=== PATIENT | male | born 1955 | race Caucasian/White ===

== ENCOUNTER 2017-12-09 16:36 | Emergency (ER) | payer OTHER ==
--- NOTE | 2017-12-09 16:42 | PDOC ---
Rapid Medical Evaluation Time Seen by Provider: 12/09/17 16:39 Medical Evaluation: Allergies Allergy/AdvReac Type Severity Reaction Status Date / Time No Known Allergies Allergy Verified 01/21/15 18:47 12/09/17 16:39 I have performed a brief in-person evaluation of this patient. The patient presents with a chief complaint of: acute alcohol intoxication, requesting detox. H/o alcohol abuse, seizures, anxiety, depression s/p last detox at [facility] in 2014, HTN, DM, s/p L 5th toe amp Pertinent physical exam findings:acutely intoxicated I have ordered the following:labs The patient will proceed to the ED for further evaluation.
[2017-12-09 16:44] VITALS: BMI 34.4
[2017-12-09 18:33] LABS: BASO % 0.7 % (0-2.0); EOS % 7.8 % (0-4.5); HEMATOCRIT 26.6 % (35.4-49); LYMPH % 20.5 % (8-40); MCH 29.4 pg (25.7-33.7); MCHC 33.9 g/dl (32.0-35.9); MEAN CELL VOLUME 86.7 fl (80-96); MEAN PLT VOLUME 6.2 fl (7.5-11.1); MONO % 9.9 % (3.8-10.2); NEUT % 61.1 % (42.8-82.8); PLATELET COUNT 278 K/MM3 (134-434); RBC 3.07 M/mm3 (4.00-5.60); RDW 15.3 % (11.9-15.9); WHITE BLOOD COUNT 5.3 K/mm3 (4.0-10.0)
[2017-12-09 18:44] LABS: ALBUMIN 2.9 g/dl (3.4-5.0); ANION GAP 14 (8-16); BLOOD UREA NITROGEN 7 mg/dL (7-18); CALCIUM 7.8 mg/dL (8.5-10.1); CHLORIDE 88 mmol/L (98-107); CO2 22 mmol/L (21-32); CREATININE 0.7 mg/dL (0.7-1.3); GLUCOSE,RANDOM 99 mg/dL (74-106); POTASSIUM 3.8 mmol/L (3.5-5.1); SGOT/AST 25 U/L (15-37); SGPT/ALT 21 U/L (12-78)
[2017-12-09 18:46] LABS: ALK PHOS 92 U/L (45-117); BILIRUBIN,TOTAL 0.2 mg/dL (0.2-1.0)
[2017-12-09 18:48] LABS: SODIUM 124 mmol/L (136-145)
[2017-12-09] MEDS ORDERED: SODIUM CHLORIDE 1,000 ML IV STA (20:49)
[2017-12-09] MEDS ORDERED: FOLIC ACID INJECTION - 1 MG, THIAMINE HCL 100 MG, MULTIVIT INJECTION ADULT 10 ML in SOD... IVPB ONE (20:49)
[2017-12-09 21:21] LABS: URINE APPEARANCE CLEAR; URINE BILIRUBIN NEGATIVE (NEGATIVE); URINE BLOOD NEGATIVE (NEGATIVE); URINE COLOR LTYELLOW; URINE GLUCOSE (UA) 1+ (NEGATIVE); URINE KETONE NEGATIVE (NEGATIVE); URINE LEUK ESTERASE NEGATIVE (NEGATIVE); URINE NITRITE NEGATIVE (NEGATIVE); URINE PROTEIN NEGATIVE (NEGATIVE); URINE UROBILINOGEN NEGATIVE mg/dL (0.2-1.0)
[2017-12-09 22:17] LABS: COCAINE, UR NEGATIVE ng/ml (CUTOFF=300); METHADONE, UR NEGATIVE ng/ml (CUTOFF=300); OPIATES, URI NEGATIVE ng/ml (CUTOFF=300); PHENCYCLIDINE,URINE NEGATIVE ng/ml (CUTOFF=25); URINE AMPHETAMINES NEGATIVE ng/ml (CUTOFF=500); URINE BARBITURATES NEGATIVE ng/ml (CUTOFF=200); URINE BENZODIAZEPINES NEGATIVE ng/ml (CUTOFF=200)
--- NOTE | 2017-12-09 23:42 | PDOC ---
History of Present Illness <Patrica Garcia - Last Filed: 12/09/17 23:42> - General History Source: Patient Exam Limitations: No Limitations - History of Present Illness Initial Comments: 12/09/17 23:47 Patient is a 62 year old male with a significant past medical history of HTN, Diabetes, Hyponatremia who was brought by EMS to the ED for intoxication. Patient is currently intoxicated and requesting detox. He reports experiencing general body aches. Patient currently does not having any complaints of pain while here in the ED. He states he goes to wound care for non healing wounds on left foot. Patient's current alcohol level in the ED is above 300 and his glucose level is 124. Denies chest pain, Sob. Denies nausea, vomiting. Denies fevers, chills. Denies contact with sick individual. Denies loss of consciousness. Denies any other symptoms. Allergies: None Social history: No smoking. Current Alcohol Abuse. No illicit drugs. Surgical history: Left fifth toe amputation, PMD: None <Faisal Parker - Last Filed: 12/09/17 23:48> - General Chief Complaint: Substance Abuse Stated Complaint: PAIN, ALCOHOL ABUSE Time Seen by Provider: 12/09/17 16:39 Past History - Past Medical History Anemia: No Asthma: No Cancer: No Cardiac Disorders: No CVA: No COPD: No CHF: No Dementia: No Diabetes: Yes (NON COMPLIANCE) GI Disorders: No Disorders: No HTN: Yes (NON COMPLIANCE) Hypercholesterolemia: No Kidney Stones: No Liver Disease: No Seizures: Yes (ALCOHOL RELATED) Thyroid Disease: No - Surgical History Abdominal Surgery: No Appendectomy: No Cardiac Surgery: No Cholecystectomy: No Lung Surgery: No Neurologic Surgery: No Orthopedic Surgery: No - Reproductive History Testicular Surgery: No - Suicide/Smoking/Psychosocial Hx Smoking History: Never smoked Information on smoking cessation initiated: No Hx Alcohol Use: Yes Drug/Substance Use Hx: No Substance Use Type: Alcohol Hx Substance Use Treatment: (08/30 FLUSHING) <Patrica Garcia - Last Filed: 12/09/17 23:42> <Faisal Parker - Last Filed: 12/09/17 23:48> - Past Medical History Allergies/Adverse Reactions: Allergies Allergy/AdvReac Type Severity Reaction Status Date / Time No Known Allergies Allergy Verified 12/09/17 20:46 Home Medications: Ambulatory Orders Metformin HCl [Glucophage -] 500 mg PO BID 01/21/15 Insulin Glargine,Hum.rec.anlog [Lantus] 0 unit SQ DAILY 12/09/17 Review of Systems - Review of Systems Able to Perform ROS?: Yes Comments:: 12/09/17 23:48 CONSTITUTIONAL: +Intoxicated. Absent: fever, chills, diaphoresis, generalized weakness, malaise, loss of appetite HEENT: Absent: rhinorrhea, nasal congestion, throat pain, throat swelling, difficulty swallowing, mouth swelling, ear pain, eye pain, visual Changes CARDIOVASCULAR: Absent: chest pain, syncope, palpitations, irregular heart rate, lightheadedness , peripheral edema RESPIRATORY: Absent: cough, shortness of breath, dyspnea with exertion, orthopnea, wheezing, stridor, hemoptysis GASTROINTESTINAL: Absent: abdominal pain, abdominal distension, nausea, vomiting, diarrhea, constipation, melena, hematochezia GENITOURINARY: Absent: dysuria, frequency, urgency, hesitancy, hematuria, flank pain, genital pain MUSCULOSKELETAL: Absent: myalgia, arthralgia, joint swelling SKIN: Absent: rash, itching, pallor HEMATOLOGIC/IMMUNOLOGIC: Absent: easy bleeding, easy bruising, lymphadenopathy, frequent infections ENDOCRINE: Absent: unexplained weight gain, unexplained weight loss, heat intolerance, cold intolerance NEUROLOGIC: Absent: headache, focal weakness or paresthesias, dizziness, unsteady gait, seizure, mental status changes, bladder or bowel incontinence PSYCHIATRIC: Absent: anxiety, depression, suicidal or homicidal ideation, hallucinations. <Faisal Parker - Last Filed: 12/09/17 23:48> *Physical Exam - Vital Signs Last Vital Signs Temp Pulse Resp BP Pulse Ox 98 F 96 H 19 109/76 97 12/09/17 16:41 12/09/17 16:41 12/09/17 16:41 12/09/17 16:41 12/09/17 16:41 <Patrica Garcia - Last Filed: 12/09/17 23:42> - Vital Signs Last Vital Signs Temp Pulse Resp BP Pulse Ox 98 F 96 H 19 109/76 97 12/09/17 16:41 12/09/17 16:41 12/09/17 16:41 12/09/17 16:41 12/09/17 16:41 - Physical Exam Comments: 12/09/17 23:48 GENERAL: +Obese. Well developed, well nourished. Awake and alert. No acute distress. HEENT: No scalp hematoma or lacerations. Normocephalic, atraumatic. PERRLA, EOMI. No conjunctival pallor. Sclera are non- icteric. Moist mucous membranes. Oropharynx is clear. NECK: Supple. Full ROM. No JVD. Carotid pulses 2+ and symmetric, without bruits. No thyromegaly. No lymphadenopathy. CARDIOVASCULAR: Regular rate and rhythm. No murmurs, rubs, or gallops. Distal pulses are 2+ and symmetric. PULMONARY: No evidence of respiratory distress. Lungs clear to auscultation bilaterally. No wheezing, rales or rhonchi. ABDOMINAL: +Protuberant belly Soft. Non-tender. Non-distended. No rebound or guarding. No organomegaly. Normoactive bowel sounds. MUSCULOSKELETAL Normal range of motion at all joints. No bony deformities or tenderness. No CVA tenderness. EXTREMITIES: +Left fifth toe amputation. +Full ROM. +Chronic venous stasis bilaterally No cyanosis. No clubbing. No edema. No calf tenderness. SKIN: +Numerous facial skin lesion. Warm and dry. Normal capillary refill. No rashes. No jaundice. NEUROLOGICAL: +Conversant but intoxicated. Alert, awake, appropriate. Cranial nerves 2-12 intact. No deficits to light touch and temperature in face, upper extremities and lower extremities. No motor deficits in the in face, upper extremities and lower extremities. Normoreflexic in the upper and lower extremities. Normal speech. Toes are downgoing bilaterally. Gait is normal without ataxia. PSYCHIATRIC: Cooperative. Good eye contact. Appropriate mood and affect. <Faisal Parker - Last Filed: 12/09/17 23:48> ED Treatment Course - LABORATORY CBC & Chemistry Diagram: 12/09/17 17:32 12/09/17 17:40 - ADDITIONAL ORDERS Additional order review: Laboratory Results 12/09/17 12/09/17 12/09/17 21:00 21:00 17:40 Sodium 124 L* Potassium 3.8 Chloride 88 L Carbon Dioxide 22 D Anion Gap 14 BUN 7 Creatinine 0.7 Creat Clearance w eGFR > 60 Random Glucose 99 D Calcium 7.8 L Total Bilirubin 0.2 D AST 25 ALT 21 Alkaline Phosphatase 92 Total Protein 7.0 Albumin 2.9 L Urine Color Ltyellow Urine Appearance Clear Urine pH 5.0 Ur Specific [place] 1.006 Urine Protein Negative Urine Glucose (UA) 1+ H Urine Ketones Negative Urine Blood Negative Urine Nitrite Negative Urine Bilirubin Negative Urine Urobilinogen Negative Ur Leukocyte Esterase Negative Opiates Screen Negative Methadone Screen Negative Barbiturate Screen Negative Phencyclidine Screen Negative Ur Amphetamines Screen Negative MDMA (Ecstasy) Screen Negative Benzodiazepines Screen Negative Cocaine Screen Negative U Marijuana (THC) Screen Negative Alcohol, Quantitative 12/09/17 17:32 Sodium Potassium Chloride Carbon Dioxide Anion Gap BUN Creatinine Creat Clearance w eGFR Random Glucose Calcium Total Bilirubin AST ALT Alkaline Phosphatase Total Protein Albumin Urine Color Urine Appearance Urine pH Ur Specific [place] Urine Protein Urine Glucose (UA) Urine Ketones Urine Blood Urine Nitrite Urine Bilirubin Urine Urobilinogen Ur Leukocyte Esterase Opiates Screen Methadone Screen Barbiturate Screen Phencyclidine Screen Ur Amphetamines Screen MDMA (Ecstasy) Screen Benzodiazepines Screen Cocaine Screen U Marijuana (THC) Screen Alcohol, Quantitative 317.5 H* 12/09/17 17:32 RBC 3.07 L MCV 86.7 MCHC 33.9 RDW 15.3 D MPV 6.2 L D Neutrophils % 61.1 Lymphocytes % 20.5 Monocytes % 9.9 Eosinophils % 7.8 H Basophils % 0.7 - Medications Given in the ED: ED Medications Discontinued Medications Generic Name Dose Route Start Last Admin Trade Name Freq PRN Reason Stop Dose Admin Sodium Chloride 1,000 mls @ 1,000 mls/hr 12/09/17 20:49 12/09/17 21:09 Normal Saline - IV 12/09/17 21:48 1,000 mls/hr ASDIR STA Administration <Patrica Garcia - Last Filed: 12/09/17 23:42> - LABORATORY CBC & Chemistry Diagram: 12/09/17 17:32 12/09/17 17:40 - ADDITIONAL ORDERS Additional order review: Laboratory Results 12/09/17 12/09/17 12/09/17 21:00 21:00 17:40 Sodium 124 L* Potassium 3.8 Chloride 88 L Carbon Dioxide 22 D Anion Gap 14 BUN 7 Creatinine 0.7 Creat Clearance w eGFR > 60 Random Glucose 99 D Calcium 7.8 L Total Bilirubin 0.2 D AST 25 ALT 21 Alkaline Phosphatase 92 Total Protein 7.0 Albumin 2.9 L Urine Color Ltyellow Urine Appearance Clear Urine pH 5.0 Ur Specific [place] 1.006 Urine Protein Negative Urine Glucose (UA) 1+ H Urine Ketones Negative Urine Blood Negative Urine Nitrite Negative Urine Bilirubin Negative Urine Urobilinogen Negative Ur Leukocyte Esterase Negative Opiates Screen Negative Methadone Screen Negative Barbiturate Screen Negative Phencyclidine Screen Negative Ur Amphetamines Screen Negative MDMA (Ecstasy) Screen Negative Benzodiazepines Screen Negative Cocaine Screen Negative U Marijuana (THC) Screen Negative Alcohol, Quantitative 12/09/17 17:32 Sodium Potassium Chloride Carbon Dioxide Anion Gap BUN Creatinine Creat Clearance w eGFR Random Glucose Calcium Total Bilirubin AST ALT Alkaline Phosphatase Total Protein Albumin Urine Color Urine Appearance Urine pH Ur Specific [place] Urine Protein Urine Glucose (UA) Urine Ketones Urine Blood Urine Nitrite Urine Bilirubin Urine Urobilinogen Ur Leukocyte Esterase Opiates Screen Methadone Screen Barbiturate Screen Phencyclidine Screen Ur Amphetamines Screen MDMA (Ecstasy) Screen Benzodiazepines Screen Cocaine Screen U Marijuana (THC) Screen Alcohol, Quantitative 317.5 H* 12/09/17 17:32 RBC 3.07 L MCV 86.7 MCHC 33.9 RDW 15.3 D MPV 6.2 L D Neutrophils % 61.1 Lymphocytes % 20.5 Monocytes % 9.9 Eosinophils % 7.8 H Basophils % 0.7 - Medications Given in the ED: ED Medications Discontinued Medications Generic Name Dose Route Start Last Admin Trade Name Freq PRN Reason Stop Dose Admin Sodium Chloride 1,000 mls @ 1,000 mls/hr 12/09/17 20:49 12/09/17 21:09 Normal Saline - IV 12/09/17 21:48 1,000 mls/hr ASDIR STA Administration <Faisal Parker - Last Filed: 12/09/17 23:48> *DC/Admit/Observation/Transfer - Attestations Scribe Attestion: 12/09/17 23:48 Documentation prepared by Faisal Parker, acting as medical technologist blood bank for Patrica Garcia MD/DO. <Faisal Parker - Last Filed: 12/09/17 23:48>
[2017-12-10] MEDS ORDERED: chlordiazePOXIDE HCL 25 MG CAPSULE PO ONE (06:27)
[2017-12-10] MEDS ORDERED: chlordiazePOXIDE HCL 25 MG CAPSULE ONE (06:30)
[2017-12-10 07:46] LABS: ANION GAP 10 (8-16); BLOOD UREA NITROGEN 6 mg/dL (7-18); CALCIUM 7.8 mg/dL (8.5-10.1); CHLORIDE 99 mmol/L (98-107); CO2 25 mmol/L (21-32); CREATININE 0.6 mg/dL (0.7-1.3); GLUCOSE,RANDOM 100 mg/dL (74-106); POTASSIUM 3.9 mmol/L (3.5-5.1); SODIUM 134 mmol/L (136-145)
--- NOTE | 2017-12-10 08:06 | EKG ---
Test Reason : Blood Pressure : / mmHG Vent. Rate : 087 BPM Atrial Rate : 087 BPM P-R Int : 174 ms QRS Dur : 092 ms QT Int : 386 ms P-R-T Axes : 051 029 058 degrees QTc Int : 464 ms NORMAL SINUS RHYTHM NORMAL ECG NO PREVIOUS ECGS AVAILABLE Confirmed by ESMER LINTON, LUCIO ([id number]) on 12/10/2017 8:06:22 AM Referred By: Confirmed By:LUCIO LYMAN MD
--- NOTE | 2017-12-10 08:32 | PDOC ---
*Physical Exam - Vital Signs Last Vital Signs Temp Pulse Resp BP Pulse Ox 98 F 96 H 19 109/76 97 12/09/17 16:41 12/09/17 16:41 12/09/17 16:41 12/09/17 16:41 12/09/17 16:41 ED Treatment Course - LABORATORY CBC & Chemistry Diagram: 12/09/17 17:32 12/10/17 06:37 - ADDITIONAL ORDERS Additional order review: Laboratory Results 12/10/17 12/09/17 12/09/17 06:37 21:00 21:00 Sodium 134 L Potassium 3.9 Chloride 99 D Carbon Dioxide 25 Anion Gap 10 BUN 6 L Creatinine 0.6 L Random Glucose 100 Calcium 7.8 L Urine Color Ltyellow Urine Appearance Clear Urine pH 5.0 Ur Specific [place] 1.006 Urine Protein Negative Urine Glucose (UA) 1+ H Urine Ketones Negative Urine Blood Negative Urine Nitrite Negative Urine Bilirubin Negative Urine Urobilinogen Negative Ur Leukocyte Esterase Negative Opiates Screen Negative Methadone Screen Negative Barbiturate Screen Negative Phencyclidine Screen Negative Ur Amphetamines Screen Negative MDMA (Ecstasy) Screen Negative Benzodiazepines Screen Negative Cocaine Screen Negative U Marijuana (THC) Screen Negative 12/09/17 17:32 RBC 3.07 L MCV 86.7 MCHC 33.9 RDW 15.3 D MPV 6.2 L D Neutrophils % 61.1 Lymphocytes % 20.5 Monocytes % 9.9 Eosinophils % 7.8 H Basophils % 0.7 - Medications Given in the ED: ED Medications Discontinued Medications Generic Name Dose Route Start Last Admin Trade Name Freq PRN Reason Stop Dose Admin Chlordiazepoxide HCl 50 mg 12/10/17 06:27 12/10/17 06:37 Librium - PO 12/10/17 06:28 50 mg ONCE ONE Administration Sodium Chloride 1,000 mls @ 1,000 mls/hr 12/09/17 20:49 12/09/17 21:09 Normal Saline - IV 12/09/17 21:48 1,000 mls/hr ASDIR STA Administration Folic Acid 1 mg/ Thiamine HCl 1,000 mls @ 125 mls/hr 12/09/17 20:49 12/09/17 22:20 100 mg/ Multivitamins/Minerals IVPB 12/10/17 04:48 125 mls/hr 10 ml/ Sodium Chloride ONCE ONE Administration Medical Decision Making - Medical Decision Making 12/10/17 08:30 I received this patient on sign out at 7am He is awaiting transfer to [facility] Sodium was noted to be 124 Pt given NS BMP repeated Na 134 Pt apparently was given Librium 50mg po Case reviewed with Dr. Andino can transfer Clinical impression: alcohol abuse, initial presentation hyponatremia resolved, initial presentation *DC/Admit/Observation/Transfer Diagnosis at time of Disposition: Alcohol dependence Qualifiers: Substance use status: uncomplicated Qualified Code(s): F10.20 - Alcohol dependence, uncomplicated - Discharge Dispostion Disposition: TRANSFER ACUTE CARE/OTHER HOSP Condition at time of disposition: Improved Admit: No - Referrals - Patient Instructions Printed Discharge Instructions: Alcoholism (Alternative Therapy), DI for Alcohol Abuse - Post Discharge Activity
[2017-12-10 08:46] VITALS: BP 134/80; PULSE 93; TEMP 98.3
== END 2017-12-10 08:50 | disposition short-term general hospital (02) ==
LOC: JER 16:36
PROC: 3E033GC Introduction of Other Therapeutic Substance into Peripheral Vein, Percutaneous Approach (ICD-10-PCS; principal; 2017-12-09)
DX: F10.120 Alcohol abuse with intoxication, uncomplicated (principal); Y90.8 Blood alcohol level of 240 mg/100 ml or more; E87.1 Hypo-osmolality and hyponatremia; I10 Essential (primary) hypertension; E11.9 Type 2 diabetes mellitus without complications; Z79.4 Long term (current) use of insulin; Z79.84 Long term (current) use of oral hypoglycemic drugs; F41.8 Other specified anxiety disorders; Z86.69 Personal history of other diseases of the nervous system and sense organs
CPT/HCPCS: 36415; 80048; 80053; 80307; 81003; 85025; 93005; 93010; 96365; 96366; 99284-25

== ENCOUNTER 2017-12-10 09:20 | Inpatient (IN) | payer OTHER ==
[2017-12-10 11:23] VITALS: BMI 35.2
--- NOTE | 2017-12-10 16:35 | HP ---
CIWA Score - CIWA Score Nausea/Vomitin (DIARRHEA) Muscle Tremors: 4-Moderate,w/Arms Extend Anxiety: 4-Mod. Anxious/Guarded Agitation: 3 Paroxysmal Sweats: 1-Minimal Palms Moist Orientation: 0-Oriented Tacttile Disturbances: 3-Moderate Itch/Numb/Burn Auditory Disturbances: 0-None Visual Disturbances: 0-None Headache: 1-Very Mild CIWA-Ar Total Score: 21 Admission ROS BHS - HPI Chief Complaint: WITHDRAWAL SX FROM ALCOHOL Allergies/Adverse Reactions: Allergies Allergy/AdvReac Type Severity Reaction Status Date / Time No Known Allergies Allergy Verified 12/09/17 20:46 History of Present Illness: 62 Y/O MALE WITH A HX ALCOHOL DEPENDENCE SEEKING DETOX TX. [facility] AFTER STABILIZATION THEN REFERRED HERE FOR DETOX. PT REPORTS HE WAS AT THE ER DUE TO ALCOHOL INTOXICATION AND REQUESTING DETOX TX. Exam Limitations: No Limitations - Ebola screening Have you traveled outside of the country in the last 21 days: No (N) Have you had contact with anyone from an Ebola affected area: No Have you been sick,other than usual withdrawal symptoms: No Do you have a fever: No - Review of Systems Constitutional: Chills, Night Sweats EENT: reports: Blurred Vision, Tearing, Nose Congestion Respiratory: reports: No Symptoms reported Cardiac: reports: Lightheadedness GI: reports: Diarrhea, Nausea, Poor Fluid Intake, Vomiting : reports: Frequency Musculoskeletal: reports: Back Pain, Joint Pain, Muscle Pain Integumentary: reports: Dryness (SCALY FACIAL), Flushing Neuro: reports: Headache, Unsteady Gait, Dizziness, Other (BLACKOUTS) Endocrine: reports: No Symptoms Reported Hematology: reports: Anemia Psychiatric: reports: Orientated x3 Other Systems: Reviewed and Negative Patient History - Patient Medical History Hx Anemia: Yes Hx Asthma: No Hx Chronic Obstructive Pulmonary Disease (COPD): No Hx Cancer: No Hx Cardiac Disorders: No Hx Congestive Heart Failure: No Hx Hypertension: Yes (ON MED) Hx Hypercholesterolemia: Yes (NO CURRENT MED--IMPROVED) Hx Pacemaker: No HX Cerebrovascular Accident: No Hx Seizures: No Hx Dementia: No Hx Diabetes: Yes (ON LANTUS 12 UNITS HS) Hx Gastrointestinal Disorders: No Hx Liver Disease: No Hx Genitourinary Disorders: No Hx Sexually Transmitted Disorders: No (DENIES) Hx Renal Disease (ESRD): No Hx Thyroid Disease: No Hx Human Immunodeficiency Virus (HIV): No (NEGATIVE HX;LAST 2013) Hx Hepatitis C: No Hx Depression: Yes Hx Suicide Attempt: No (DENIES) Hx Bipolar Disorder: No Hx Schizophrenia: No - Patient Surgical History Past Surgical History: Yes Hx Neurologic Surgery: No Hx Cataract Extraction: No Hx Cardiac Surgery: No Hx Lung Surgery: No Hx Breast Surgery: No Hx Breast Biopsy: No Hx Abdominal Surgery: No Hx Appendectomy: No Hx Cholecystectomy: No Hx Genitourinary Surgery: No Hx Orthopedic Surgery: No Other Surgical History: AMPUPATION OF RIGHT 5TH TOE IN 07/31 Anesthesia Reaction: No - PPD History Previous Implant?: Yes Documented Results: Negative w/o proof Implanted On Prior [facility] Admission?: Yes PPD to be Administered?: Yes - Reproductive History Patient is a Female of Child Bearing Age (11 -55 yrs old): No (MALE) - Smoking Cessation Smoking history: Never smoked Hx Chewing Tobacco Use: No Initiated information on smoking cessation: No - Substance & Tx. History Hx Alcohol Use: Yes (VODKA/BEER) Hx Substance Use: No (DENIES) Substance Use Type: Alcohol Hx Substance Use Treatment: Yes (LAST TX AT [facility]) - Substances Abused Alcohol Route: Oral Frequency: Daily Amount used: 1 to 1 1/2 pint of Vodka Age of first use: 17 Date of Last Use: 12/09/17 Family Disease History - Family Disease History Family Disease History: Heart Disease: Father (), Brother (), CA : Mother (COPD,CA OF LUNG,), Other: Mother, Brother Admission Physical Exam [facility] - Vital Signs Vital Signs: Vital Signs - 24 hr 12/10/17 11:21 Temperature 97 F L Pulse Rate 123 H Respiratory 20 Rate Blood Pressure 158/102 - Physical General Appearance: Yes: Moderate Distress, Obese, Irritable, Anxious HEENTM: Yes: EOMI, Normocephalic, CYNDIE, Pharynx Normal, Nasal Congestion Respiratory: Yes: Chest Non-Tender, Lungs Clear, Normal Breath Sounds, No Respiratory Distress Neck: Yes: No masses,lesions,Nodules, Supple, Trachea in good position Breast: Yes: Breast Exam Deferred Cardiology: Yes: Regular Rhythm, Regular Rate, S1, S2 Abdominal: Yes: Normal Bowel Sounds, Non Tender, Soft, Protuberent Genitourinary: Yes: Other (N/C) Back: Yes: Within Normal Limits Musculoskeletal: Yes: full range of Motion, Gait Steady Extremities: Yes: Normal Range of Motion, Non-Tender Neurological: Yes: internet marketing specialist II-XII NML intact, Fully Oriented, Alert Integumentary: Yes: Dry, Warm, Other (DRY SCALY SKIN ON FACE AND LOWER EXTREMITIES.) Lymphatic: Yes: Within Normal Limits - Diagnostic (1) Diabetes mellitus type 2 in obese Current Visit: Yes Status: Acute (2) Essential hypertension Current Visit: Yes Status: Acute (3) History of amputation Current Visit: Yes Status: Acute (4) Psoriasis Current Visit: Yes Status: Acute (5) Blackout Current Visit: Yes Status: Chronic Comment: DUE TO ALCOHOL DEPENDENCE (6) Obesities, morbid Current Visit: Yes Status: Chronic (7) Anemia Current Visit: Yes Status: Acute (8) Cellulitis of left anterior lower leg Current Visit: Yes Status: Chronic Comment: PT STATES RECENT COMPLETION OF ANTIBIOTICS THERAPY. Cleared for Admission [facility] - Detox or Rehab [facility] Level of Care: Medically Managed Detox Regimen/Protocol: Librium [facility] Breath Alcohol Content Breath Alcohol Content: 0 Urine Drug Screen - Results Drug Screen Negative: No Urine Drug Screen Results: BZO-Benzodiazepines
[2017-12-10] MEDS ORDERED: MAG HYDROX/AL HYDROX/SIMETH 30 ML UNIT-DOSE CUP PO PRN (16:56)
[2017-12-10] MEDS ORDERED: ACETAMINOPHEN 325 MG TABLET (FP) PO PRN (16:56)
[2017-12-10] MEDS ORDERED: chlordiazePOXIDE HCL 25 MG CAPSULE PO PRN (16:56)
[2017-12-10] MEDS ORDERED: MAGNESIUM HYDROX 2400MG/30ML ORAL SUSPENSION 30 ML CUP PO PRN (16:56)
[2017-12-10] MEDS ORDERED: P-EPHED 60MG/TRIPROLIDI 2.5MG TABLET PO PRN (16:56)
[2017-12-10] MEDS ORDERED: MENTHOL/PHENOL 1 EACH UD MM PRN (16:56)
[2017-12-10] MEDS ORDERED: MAGNESIUM CITRATE 300 ML BOTTLE PO PRN (16:56)
[2017-12-10] MEDS ORDERED: IBUPROFEN 400 MG TABLET (FP) PO PRN (16:56)
[2017-12-10] MEDS ORDERED: LOPERAMIDE HCL 2 MG CAPSULE PO PRN (16:56)
[2017-12-10] MEDS ORDERED: guaiFENesin/D-METHORPHAN HB 10 ML UNIT-DOSE CUPS PO PRN (16:56)
[2017-12-10] MEDS ORDERED: chlordiazePOXIDE HCL 25 MG CAPSULE PO ONE (17:45)
[2017-12-10] MEDS: LISINOPRIL 10 MG TABLET (FP) PO SCH (18:44)
[2017-12-10] MEDS: INSULIN DETEMIR 100 UNITS/ML MDV SQ SCH (21:25)
[2017-12-10 21:26] LABS: URINE APPEARANCE CLEAR; URINE BILIRUBIN NEGATIVE (NEGATIVE); URINE BLOOD NEGATIVE (NEGATIVE); URINE COLOR LTYELLOW; URINE GLUCOSE (UA) 1+ (NEGATIVE); URINE KETONE NEGATIVE (NEGATIVE); URINE LEUK ESTERASE NEGATIVE (NEGATIVE); URINE NITRITE NEGATIVE (NEGATIVE); URINE UROBILINOGEN NEGATIVE mg/dL (0.2-1.0)
[2017-12-10 21:27] LABS: URINE PROTEIN 2+ (NEGATIVE)
[2017-12-10 21:41] LABS: EPI CELLS RARE /HPF (FEW); URINE HYALINE CAST 1 /lpf; URINE MUCUS RARE
[2017-12-10] MEDS: BACITRACIN 0.9 GM PACKET TP SCH (22:18)
[2017-12-10] MEDS: chlordiazePOXIDE HCL 25 MG CAPSULE PO SCH (22:18)
[2017-12-10] MEDS: THIAMINE HCL 100 MG TABLET (FP) PO SCH (22:19)
[2017-12-11] MEDS: chlordiazePOXIDE HCL 25 MG CAPSULE PO SCH ×4 (05:48→22:17)
--- NOTE | 2017-12-11 10:14 | CONSULT ---
[facility] Psychiatric Consult - Data Date of interview: 11/18/17 Admission source: [facility] Identifying data: Pt. is a 62 year old male, single, without kids, and disabled. This is one of multiple admissions for patient. Pt. admitted to for alcohol dependence. Substance Abuse History: Substance & Tx. History. Hx Alcohol Use: Yes (VODKA/ BEER). Hx Substance Use: No (DENIES). Substance Use Type: Alcohol. Hx Substance Use Treatment: Yes (LAST TX AT [facility]). - Substances Abused. Alcohol. Route: Oral. Frequency: Daily. Amount used: 1 to 1 1/2 pint of Vodka. Age of first use: 17. Date of Last Use: 12/09/17 Medical History: Anemia, Hypertension, hypercholesterolemia, Diabetes, Psychiatric History: Pt. denies h/o OPC, psychiatric hospitalization, and suicide attempts. Pt. denies suicidal and homicidal ideation. Physical/Sexual Abuse/Trauma History: Denies. Mental Status Exam - Mental Status Exam Alert and Oriented to: Time, Place, Person Cognitive Function: Good Patient Appearance: Unkempt Mood: Hopeful Affect: Normal Range Patient Behavior: Appropriate, Cooperative Speech Pattern: Clear, Appropriate Voice Loudness: Normal Thought Process: Goal Oriented Thought Disorder: Not Present Hallucinations: Denies Suicidal Ideation: Denies Homicidal Ideation: Denies Insight/Judgement: Poor Sleep: Fair Appetite: Good Muscle strength/Tone: Normal Gait/Station: Normal Psychiatric Findings - Problem List ([place] 1, 2,3) (1) Alcohol dependence Current Visit: Yes Status: Acute - Initial Treatment Plan Initial Treatment Plan: Psychoeducation provided. Detoxification in progress. Observation.
[2017-12-11] MEDS: BACITRACIN 0.9 GM PACKET TP SCH ×2 (10:26→22:16)
[2017-12-11] MEDS: LISINOPRIL 10 MG TABLET (FP) PO SCH (10:26)
[2017-12-11] MEDS: PRENATAL VITAMINS W/ FOLIC ACID TABLET (FP) PO SCH (10:26)
--- NOTE | 2017-12-11 10:34 | EKG ---
Test Reason : Blood Pressure : / mmHG Vent. Rate : 083 BPM Atrial Rate : 083 BPM P-R Int : 198 ms QRS Dur : 090 ms QT Int : 382 ms P-R-T Axes : 010 010 040 degrees QTc Int : 448 ms NORMAL SINUS RHYTHM NORMAL ECG WHEN COMPARED WITH ECG OF 09-DEC-2017 21:45, NO SIGNIFICANT CHANGE WAS FOUND Confirmed by VICTOR MANUEL WEISS MD ([id number]) on 12/11/2017 10:34:11 AM Referred By: Confirmed By:VICTOR MANUEL WEISS MD
--- NOTE | 2017-12-11 10:39 | PN ---
[facility] CIWA - CIWA Score Nausea/Vomitin-No Nausea/No Vomiting Muscle Tremors: 4-Moderate,w/Arms Extend Anxiety: 4-Mod. Anxious/Guarded Agitation: 3 Paroxysmal Sweats: 1-Minimal Palms Moist Orientation: 0-Oriented Tacttile Disturbances: 3-Moderate Itch/Numb/Burn Auditory Disturbances: 0-None Visual Disturbances: 0-None Headache: 0-None Present CIWA-Ar Total Score: 15 S Progress Note (SOAP) Subjective: ANXIETY,TREMORS,SWEATS.OOB AMBULATING. Objective: 12/11/17 10:38 Vital Signs Temperature 96.4 F L 12/11/17 10:25 Pulse Rate 92 H 12/11/17 10:25 Respiratory Rate 18 12/11/17 10:25 Blood Pressure 130/85 12/11/17 10:25 O2 Sat by Pulse Oximetry (%) Laboratory Last Values POC Glucometer 108 UNITS (80-120) 12/11/17 05:47 Urine Color Ltyellow 12/10/17 20:00 Urine Appearance Clear 12/10/17 20:00 Urine pH 7.0 (5.0-8.0) D 12/10/17 20:00 Ur Specific [place] 1.009 (1.001-1.035) 12/10/17 20:00 Urine Protein 2+ (NEGATIVE) H 12/10/17 20:00 Urine Glucose (UA) 1+ (NEGATIVE) H 12/10/17 20:00 Urine Ketones Negative (NEGATIVE) 12/10/17 20:00 Urine Blood Negative (NEGATIVE) 12/10/17 20:00 Urine Nitrite Negative (NEGATIVE) 12/10/17 20:00 Urine Bilirubin Negative (NEGATIVE) 12/10/17 20:00 Urine Urobilinogen Negative mg/dL (0.2-1.0) 12/10/17 20:00 Ur Leukocyte Esterase Negative (NEGATIVE) 12/10/17 20:00 Urine WBC (Auto) <1 /hpf (3-5) 12/10/17 20:00 Urine RBC (Auto) <1 /hpf (0-3) 12/10/17 20:00 Ur Epithelial Cells Rare /HPF (FEW) 12/10/17 20:00 Hyaline Casts 1 /lpf 12/10/17 20:00 Urine Mucus Rare 12/10/17 20:00 OTHER LABS PENDING Assessment: 12/11/17 10:38 WITHDRAWAL SX Plan: CONTINUE DETOX
[2017-12-11] MEDS: SILVER SULFADIAZINE 1% TOP CREAM 50 GM JAR TP SCH (15:49)
[2017-12-11] MEDS: INSULIN DETEMIR 100 UNITS/ML MDV SQ SCH (22:18)
[2017-12-11] MEDS: THIAMINE HCL 100 MG TABLET (FP) PO SCH (22:19)
[2017-12-12] MEDS: chlordiazePOXIDE HCL 25 MG CAPSULE PO SCH ×3 (05:33→17:40)
[2017-12-12] MEDS ORDERED: cloNIDine HCL 0.1 MG TABLET PO ONE (06:54)
[2017-12-12] MEDS: SILVER SULFADIAZINE 1% TOP CREAM 50 GM JAR TP SCH (10:11)
[2017-12-12] MEDS: PRENATAL VITAMINS W/ FOLIC ACID TABLET (FP) PO SCH (10:11)
[2017-12-12] MEDS: LISINOPRIL 10 MG TABLET (FP) PO SCH (10:11)
[2017-12-12] MEDS: BACITRACIN 0.9 GM PACKET TP SCH ×2 (10:11→22:16)
--- NOTE | 2017-12-12 10:36 | PN ---
[facility] CIWA - CIWA Score Nausea/Vomitin-No Nausea/No Vomiting Muscle Tremors: 4-Moderate,w/Arms Extend Anxiety: 4-Mod. Anxious/Guarded Agitation: 4-Moderately Restless Paroxysmal Sweats: 1-Minimal Palms Moist Orientation: 0-Oriented Tacttile Disturbances: 3-Moderate Itch/Numb/Burn Auditory Disturbances: 0-None Visual Disturbances: 0-None Headache: 0-None Present CIWA-Ar Total Score: 16 S Progress Note (SOAP) Subjective: ALERT O X 3. OOB AMBULATING WITH STEADY GAIT. SLIGHT ANXIETY,TREMORS. REPORTS HAD BIOPSY OF LESIONS ON FOREHEAD AND WAS BENIGN. Objective: 12/12/17 10:36 Vital Signs Temperature 96.7 F L 12/12/17 09:50 Pulse Rate 82 12/12/17 09:50 Respiratory Rate 18 12/12/17 09:50 Blood Pressure 152/88 12/12/17 09:50 O2 Sat by Pulse Oximetry (%) Laboratory Last Values POC Glucometer 80 UNITS (80-120) 12/12/17 05:32 Urine Color Ltyellow 12/10/17 20:00 Urine Appearance Clear 12/10/17 20:00 Urine pH 7.0 (5.0-8.0) D 12/10/17 20:00 Ur Specific [place] 1.009 (1.001-1.035) 12/10/17 20:00 Urine Protein 2+ (NEGATIVE) H 12/10/17 20:00 Urine Glucose (UA) 1+ (NEGATIVE) H 12/10/17 20:00 Urine Ketones Negative (NEGATIVE) 12/10/17 20:00 Urine Blood Negative (NEGATIVE) 12/10/17 20:00 Urine Nitrite Negative (NEGATIVE) 12/10/17 20:00 Urine Bilirubin Negative (NEGATIVE) 12/10/17 20:00 Urine Urobilinogen Negative mg/dL (0.2-1.0) 12/10/17 20:00 Ur Leukocyte Esterase Negative (NEGATIVE) 12/10/17 20:00 Urine WBC (Auto) <1 /hpf (3-5) 12/10/17 20:00 Urine RBC (Auto) <1 /hpf (0-3) 12/10/17 20:00 Ur Epithelial Cells Rare /HPF (FEW) 12/10/17 20:00 Hyaline Casts 1 /lpf 12/10/17 20:00 Urine Mucus Rare 12/10/17 20:00 RPR Titer Nonreactive (NONREACTIVE) 12/11/17 06:00 OTHER LAB RESULTS PENDING Assessment: 12/12/17 10:36 WITHDRAWAL SX Plan: CONTINUE DETOX
[2017-12-12 12:05] LABS: HEMATOCRIT 31.2 % (35.4-49); HEMOGLOBIN 10.2 GM/dL (11.7-16.9); MCH 29.7 pg (25.7-33.7); MCHC 32.7 g/dl (32.0-35.9); MEAN CELL VOLUME 90.8 fl (80-96); MEAN PLT VOLUME 7.5 fl (7.5-11.1); PLATELET COUNT 273 K/MM3 (134-434); RBC 3.44 M/mm3 (4.00-5.60); WHITE BLOOD COUNT 7.2 K/mm3 (4.0-10.0)
[2017-12-12 12:43] LABS: ALBUMIN 3.4 g/dl (3.4-5.0); ALK PHOS 111 U/L (45-117); ANION GAP 6 (8-16); BILIRUBIN,TOTAL 0.4 mg/dL (0.2-1.0); BLOOD UREA NITROGEN 7 mg/dL (7-18); CHLORIDE 96 mmol/L (98-107); CO2 29 mmol/L (21-32); GLUCOSE,RANDOM 114 mg/dL (74-106); POTASSIUM 4.7 mmol/L (3.5-5.1); SGOT/AST 27 U/L (15-37); SGPT/ALT 21 U/L (12-78); SODIUM 131 mmol/L (136-145); TOT PROT 7.8 g/dl (6.4-8.2)
[2017-12-12] MEDS ORDERED: diphenhydrAMINE HCL 25 MG CAPSULE (FP) PO ONE (22:17)
[2017-12-12] MEDS: diphenhydrAMINE HCL 50 MG CAPSULE PO PRN (22:17)
[2017-12-12] MEDS: INSULIN DETEMIR 100 UNITS/ML MDV SQ SCH (22:18)
[2017-12-12] MEDS: THIAMINE HCL 100 MG TABLET (FP) PO SCH (22:18)
[2017-12-12] MEDS: chlordiazePOXIDE 5 MG CAPSULE PO SCH (22:18)
[2017-12-13] MEDS: chlordiazePOXIDE 5 MG CAPSULE PO SCH ×3 (05:26→17:37)
[2017-12-13] MEDS: PRENATAL VITAMINS W/ FOLIC ACID TABLET (FP) PO SCH (10:04)
[2017-12-13] MEDS: SILVER SULFADIAZINE 1% TOP CREAM 50 GM JAR TP SCH (10:04)
[2017-12-13] MEDS: LISINOPRIL 10 MG TABLET (FP) PO SCH (10:04)
[2017-12-13] MEDS: BACITRACIN 0.9 GM PACKET TP SCH ×2 (10:04→22:26)
--- NOTE | 2017-12-13 16:45 | PN ---
[facility] Progress Note (SOAP) Subjective: Body Aches, Tremors. Objective: PT. A & O X 3, OBSERVED AMBULATING ON UNIT. NO ACUTE DISTRESS. 12/13/17 16:43 Vital Signs Temperature 95.9 F L 12/13/17 13:27 Pulse Rate 92 H 12/13/17 13:27 Respiratory Rate 18 12/13/17 13:27 Blood Pressure 148/89 12/13/17 13:27 O2 Sat by Pulse Oximetry (%) Laboratory Tests 12/10/17 12/10/17 12/10/17 12:48 20:00 21:17 WBC RBC Hgb Hct MCV MCH MCHC RDW Plt Count MPV Sodium Potassium Chloride Carbon Dioxide Anion Gap BUN Creatinine Creat Clearance w eGFR POC Glucometer 109 163 Random Glucose Calcium Total Bilirubin AST ALT Alkaline Phosphatase Total Protein Albumin Urine Color Ltyellow Urine Appearance Clear Urine pH 7.0 D Ur Specific [place] 1.009 Urine Protein 2+ H Urine Glucose (UA) 1+ H Urine Ketones Negative Urine Blood Negative Urine Nitrite Negative Urine Bilirubin Negative Urine Urobilinogen Negative Ur Leukocyte Esterase Negative Urine WBC (Auto) <1 Urine RBC (Auto) <1 Ur Epithelial Cells Rare Hyaline Casts 1 Urine Mucus Rare RPR Titer 12/11/17 12/11/17 12/11/17 05:47 06:00 16:30 WBC RBC Hgb Hct MCV MCH MCHC RDW Plt Count MPV Sodium Potassium Chloride Carbon Dioxide Anion Gap BUN Creatinine Creat Clearance w eGFR POC Glucometer 108 118 Random Glucose Calcium Total Bilirubin AST ALT Alkaline Phosphatase Total Protein Albumin Urine Color Urine Appearance Urine pH Ur Specific [place] Urine Protein Urine Glucose (UA) Urine Ketones Urine Blood Urine Nitrite Urine Bilirubin Urine Urobilinogen Ur Leukocyte Esterase Urine WBC (Auto) Urine RBC (Auto) Ur Epithelial Cells Hyaline Casts Urine Mucus RPR Titer Nonreactive 12/11/17 12/12/17 12/12/17 20:52 05:32 05:45 WBC 7.2 D RBC 3.44 L Hgb 10.2 L D Hct 31.2 L D MCV 90.8 MCH 29.7 MCHC 32.7 RDW 16.0 H Plt Count 273 MPV 7.5 D Sodium Potassium Chloride Carbon Dioxide Anion Gap BUN Creatinine Creat Clearance w eGFR POC Glucometer 203 80 Random Glucose Calcium Total Bilirubin AST ALT Alkaline Phosphatase Total Protein Albumin Urine Color Urine Appearance Urine pH Ur Specific [place] Urine Protein Urine Glucose (UA) Urine Ketones Urine Blood Urine Nitrite Urine Bilirubin Urine Urobilinogen Ur Leukocyte Esterase Urine WBC (Auto) Urine RBC (Auto) Ur Epithelial Cells Hyaline Casts Urine Mucus RPR Titer 12/12/17 12/12/17 12/12/17 05:45 16:35 21:38 WBC RBC Hgb Hct MCV MCH MCHC RDW Plt Count MPV Sodium 131 L Potassium 4.7 D Chloride 96 L Carbon Dioxide 29 Anion Gap 6 L BUN 7 Creatinine 1.0 D Creat Clearance w eGFR > 60 POC Glucometer 133 126 Random Glucose 114 H Calcium 8.0 L Total Bilirubin 0.4 D AST 27 ALT 21 Alkaline Phosphatase 111 D Total Protein 7.8 Albumin 3.4 Urine Color Urine Appearance Urine pH Ur Specific [place] Urine Protein Urine Glucose (UA) Urine Ketones Urine Blood Urine Nitrite Urine Bilirubin Urine Urobilinogen Ur Leukocyte Esterase Urine WBC (Auto) Urine RBC (Auto) Ur Epithelial Cells Hyaline Casts Urine Mucus RPR Titer 12/13/17 05:25 WBC RBC Hgb Hct MCV MCH MCHC RDW Plt Count MPV Sodium Potassium Chloride Carbon Dioxide Anion Gap BUN Creatinine Creat Clearance w eGFR POC Glucometer 154 Random Glucose Calcium Total Bilirubin AST ALT Alkaline Phosphatase Total Protein Albumin Urine Color Urine Appearance Urine pH Ur Specific [place] Urine Protein Urine Glucose (UA) Urine Ketones Urine Blood Urine Nitrite Urine Bilirubin Urine Urobilinogen Ur Leukocyte Esterase Urine WBC (Auto) Urine RBC (Auto) Ur Epithelial Cells Hyaline Casts Urine Mucus RPR Titer LABS NOTED. Assessment: 12/13/17 16:44 WITHDRAWAL SYMPTOMS. Plan: CONTINUE DETOX.
[2017-12-13] MEDS: chlordiazePOXIDE HCL 10 MG CAPSULE PO SCH (22:26)
[2017-12-13] MEDS: THIAMINE HCL 100 MG TABLET (FP) PO SCH (22:28)
[2017-12-13] MEDS: diphenhydrAMINE HCL 50 MG CAPSULE PO PRN (22:29)
[2017-12-13] MEDS: INSULIN DETEMIR 100 UNITS/ML MDV SQ SCH (22:30)
[2017-12-14] MEDS: chlordiazePOXIDE HCL 10 MG CAPSULE PO SCH (05:54)
[2017-12-14 06:35] VITALS: BP 149/88; PULSE 83; TEMP 96
--- NOTE | 2017-12-14 16:40 | DS ---
[facility] Detox Discharge Summary Admission Date: 12/10/17 Discharge Date: 12/14/17 - History Present History: Alcohol Dependence Pertinent Past History: DMT2 HTN Anemia - Physical Exam Results Vital Signs: Vital Signs Temperature 96.0 F L 12/14/17 06:34 Pulse Rate 83 12/14/17 06:34 Respiratory Rate 20 12/14/17 06:34 Blood Pressure 149/88 12/14/17 06:34 O2 Sat by Pulse Oximetry (%) Pertinent Admission Physical Exam Findings: Withdrawal symptoms Laboratory Tests 12/10/17 12/10/17 12/10/17 12:48 20:00 21:17 WBC RBC Hgb Hct MCV MCH MCHC RDW Plt Count MPV Sodium Potassium Chloride Carbon Dioxide Anion Gap BUN Creatinine Creat Clearance w eGFR POC Glucometer 109 163 Random Glucose Calcium Total Bilirubin AST ALT Alkaline Phosphatase Total Protein Albumin Urine Color Ltyellow Urine Appearance Clear Urine pH 7.0 D Ur Specific [place] 1.009 Urine Protein 2+ H Urine Glucose (UA) 1+ H Urine Ketones Negative Urine Blood Negative Urine Nitrite Negative Urine Bilirubin Negative Urine Urobilinogen Negative Ur Leukocyte Esterase Negative Urine WBC (Auto) <1 Urine RBC (Auto) <1 Ur Epithelial Cells Rare Hyaline Casts 1 Urine Mucus Rare RPR Titer 12/11/17 12/11/17 12/11/17 05:47 06:00 16:30 WBC RBC Hgb Hct MCV MCH MCHC RDW Plt Count MPV Sodium Potassium Chloride Carbon Dioxide Anion Gap BUN Creatinine Creat Clearance w eGFR POC Glucometer 108 118 Random Glucose Calcium Total Bilirubin AST ALT Alkaline Phosphatase Total Protein Albumin Urine Color Urine Appearance Urine pH Ur Specific [place] Urine Protein Urine Glucose (UA) Urine Ketones Urine Blood Urine Nitrite Urine Bilirubin Urine Urobilinogen Ur Leukocyte Esterase Urine WBC (Auto) Urine RBC (Auto) Ur Epithelial Cells Hyaline Casts Urine Mucus RPR Titer Nonreactive 12/11/17 12/12/17 12/12/17 20:52 05:32 05:45 WBC 7.2 D RBC 3.44 L Hgb 10.2 L D Hct 31.2 L D MCV 90.8 MCH 29.7 MCHC 32.7 RDW 16.0 H Plt Count 273 MPV 7.5 D Sodium Potassium Chloride Carbon Dioxide Anion Gap BUN Creatinine Creat Clearance w eGFR POC Glucometer 203 80 Random Glucose Calcium Total Bilirubin AST ALT Alkaline Phosphatase Total Protein Albumin Urine Color Urine Appearance Urine pH Ur Specific [place] Urine Protein Urine Glucose (UA) Urine Ketones Urine Blood Urine Nitrite Urine Bilirubin Urine Urobilinogen Ur Leukocyte Esterase Urine WBC (Auto) Urine RBC (Auto) Ur Epithelial Cells Hyaline Casts Urine Mucus RPR Titer 12/12/17 12/12/17 12/12/17 05:45 16:35 21:38 WBC RBC Hgb Hct MCV MCH MCHC RDW Plt Count MPV Sodium 131 L Potassium 4.7 D Chloride 96 L Carbon Dioxide 29 Anion Gap 6 L BUN 7 Creatinine 1.0 D Creat Clearance w eGFR > 60 POC Glucometer 133 126 Random Glucose 114 H Calcium 8.0 L Total Bilirubin 0.4 D AST 27 ALT 21 Alkaline Phosphatase 111 D Total Protein 7.8 Albumin 3.4 Urine Color Urine Appearance Urine pH Ur Specific [place] Urine Protein Urine Glucose (UA) Urine Ketones Urine Blood Urine Nitrite Urine Bilirubin Urine Urobilinogen Ur Leukocyte Esterase Urine WBC (Auto) Urine RBC (Auto) Ur Epithelial Cells Hyaline Casts Urine Mucus RPR Titer 12/13/17 12/13/17 12/13/17 05:25 16:31 22:28 WBC RBC Hgb Hct MCV MCH MCHC RDW Plt Count MPV Sodium Potassium Chloride Carbon Dioxide Anion Gap BUN Creatinine Creat Clearance w eGFR POC Glucometer 154 105 127 Random Glucose Calcium Total Bilirubin AST ALT Alkaline Phosphatase Total Protein Albumin Urine Color Urine Appearance Urine pH Ur Specific [place] Urine Protein Urine Glucose (UA) Urine Ketones Urine Blood Urine Nitrite Urine Bilirubin Urine Urobilinogen Ur Leukocyte Esterase Urine WBC (Auto) Urine RBC (Auto) Ur Epithelial Cells Hyaline Casts Urine Mucus RPR Titer Labs noted - Treatment Hospital Course: Detox Protocol Followed, Detoxed Safely, Responded well, Discharged Condition Good - Medication Discharge Medications: Ambulatory Orders Insulin Glargine,Hum.rec.anlog [Lantus] 12 unit SQ HS 12/09/17 Lisinopril [Prinivil] mg PO DAILY 12/10/17 Multivitamin [Multiple Vitamins] 12/10/17 Vitamin B Complex [B Complex] 1 each PO DAILY 12/10/17 - Diagnosis (1) Alcohol dependence with uncomplicated withdrawal Status: Acute (2) Anemia Status: Chronic Qualifiers: Anemia type: unspecified type Qualified Code(s): D64.9 - Anemia, unspecified (3) Diabetes mellitus type 2 in obese Status: Chronic (4) Essential hypertension Status: Chronic (5) Insomnia Status: Acute Qualifiers: Insomnia type: unspecified Qualified Code(s): G47.00 - Insomnia, unspecified - AMA Did Patient Leave Against Medical Advice: No (F/U with PCP within 1-2 weeks)
== END 2017-12-14 06:45 | disposition home or self-care (01) | DRG 775 ==
LOC: YASAS 09:20 → Y3N 15:54
PROVIDERS: ADMIT Internal Medicine; ATTEND Internal Medicine
PROC: HZ2ZZZZ Detoxification Services for Substance Abuse Treatment (ICD-10-PCS; principal; 2017-12-10)
DX: F10.230 Alcohol dependence with withdrawal, uncomplicated (principal); D64.9 Anemia, unspecified; E11.69 Type 2 diabetes mellitus with other specified complication; G47.00 Insomnia, unspecified; E66.9 Obesity, unspecified; Z68.35 Body mass index [BMI] 35.0-35.9, adult; L40.9 Psoriasis, unspecified; L03.116 Cellulitis of left lower limb; Z89.412 Acquired absence of left great toe; Z89.422 Acquired absence of other left toe(s); Z89.421 Acquired absence of other right toe(s); Z79.4 Long term (current) use of insulin
CPT/HCPCS: 36415; 80053; 81003; 81015; 82962; 85027; 86593; 93005; 93010; J0735